=== PATIENT | male | born 1990 | race Caucasian/White ===

== ENCOUNTER → 2016-11-07 | Outpatient (CLI) | payer OTHER ==
[~2016-11-07] MED LIST: AMOXTAB PO; LORT1ELX8 PO; MOME50SP; PROAAER INH
--- NOTE | 2016-11-07 14:58 | REP ---
RIGHT ELBOW SERIES: Four views. HISTORY: Right elbow pain. FINDINGS: Four views right elbow demonstrate adelso olecranon soft tissue swelling . No evidence of fracture subluxation or joint effusion. IMPRESSION: Soft-tissue swelling about the olecranon. This may reflect olecranon bursitis. No acute bony abnormality. Signed by Kyle Olivares MD 11/07/2016 03:27 P
== END ==
LOC: M LRY 14:01
PROVIDERS: ATTEND Nurse Practitioner Family
DX: M25.521 Pain in right elbow (principal)

== ENCOUNTER → 2017-03-13 | Outpatient (CLI) | payer OTHER ==
--- NOTE | 2017-03-13 10:04 | REP ---
MAXILLOFACIAL CT WITHOUT CONTRAST: HISTORY: Chronic sinusitis. Mucosal thickening is present in the sinuses. There is almost complete opacification of the ethmoid and left maxillary sinuses. Moderate mucosal thickening is present in the right sphenoid sinus. Mild mucosal thickening is present in the frontal and right maxillary sinuses. Mucosal thickening involves the osteomeatal units. The uncinate processes are incompletely seen. This is due to previous surgery or secondary to chronic sinusitis. The middle and inferior nasal turbinates are partially paradoxical. There is zaina bullosa of the right middle nasal turbinate. There is minimal deviation of the nasal septum to the left. The cribriform plate, medial perla of the orbits and optic canals are intact. The carotid canals form a segment of the posterolateral perla of the sphenoid sinus. IMPRESSION: Sinus mucosal thickening as described above. Signed by Sergio Orozco MD 03/13/2017 10:09 A
== END ==
LOC: M RAD 09:02
PROVIDERS: ATTEND Otolaryngology
DX: J32.4 Chronic pansinusitis (principal)

== ENCOUNTER → 2017-04-15 | Outpatient (CLI) | payer OTHER | LOC: M RAD 07:30 | DX: J32.4 Chronic pansinusitis (principal) ==

== ENCOUNTER 2017-05-10 07:07 | Day surgery (SDC) | payer OTHER ==
[2017-05-10] MEDS ORDERED: dexameTHASONE 4 MG/ML 1ML VIAL (J1100) As Ordered (08:11)
[2017-05-10] MEDS ORDERED: LIDOCAINE 2% INJ 100 MG/5 ML SDV (FOR ANES.) As Ordered (08:11)
[2017-05-10] MEDS ORDERED: ROCURONIUM BROMIDE 50 MG/5 ML VIAL As Ordered ×2 (08:11→10:41)
[2017-05-10] MEDS ORDERED: MIDAZOLAM INJ 2 MG/2 ML VIAL (J2250) As Ordered (08:11)
[2017-05-10] MEDS ORDERED: fentaNYL 250 MCG/5 ML INJECTION (J3010) As Ordered (08:11)
[2017-05-10] MEDS ORDERED: PROPOFOL 200 MG/20 ML VIAL As Ordered (08:11)
[2017-05-10] MEDS: LR 1,000 ML IV (08:15)
[2017-05-10] MEDS: LIDOCAINE W/EPINEPHRINE 1% 20ML VIAL As Ordered (10:57)
[2017-05-10] MEDS ORDERED: HYDROmorphone HCL 2 MG/ML 1ML VIAL (J1170) As Ordered (11:12)
[2017-05-10] MEDS ORDERED: NEOSTIGMINE 10 MG/10 ML VIAL (J2710) As Ordered (11:12)
[2017-05-10] MEDS ORDERED: GLYCOPYRROLATE INJ 0.2 MG/ML 2 ML VIAL As Ordered (11:12)
[2017-05-10] MEDS: OXYMETAZOLINE NASAL SPRAY (AFRIN) As Ordered ×2 (12:35→12:37)
[2017-05-10] MEDS: METHYLENE BLUE 0.5% (5MG/ML) 10 ML AMP (PROVAYBLUE)(Q9968 PER 1MG) As Ordered (12:36)
[2017-05-10] MEDS: SODIUM CHLORIDE 0.9% NASAL GEL 15MG (AYR) As Ordered (12:36)
[2017-05-10] MEDS ORDERED: fentaNYL 100 MCG/2 ML INJECTION (J3010) As Ordered (14:05)
[2017-05-10] MEDS: fentaNYL 100 MCG/2 ML INJECTION (J3010) IV ×3 (14:07→14:29)
[2017-05-10] MEDS ORDERED: LR 1,000 ML IV ×2 (14:15)
[2017-05-10] MEDS ORDERED: ACETAMINOPH W/CODEINE #3 TAB UD PO ×2 (14:15)
[2017-05-10] MEDS: PERCOCET 5MG/325MG TAB PO (15:06)
== END 2017-05-10 16:20 | disposition home or self-care (01) ==
LOC: M SDC 07:07
DX: J32.4 Chronic pansinusitis (principal); J30.9 Allergic rhinitis, unspecified; J34.2 Deviated nasal septum; R09.81 Nasal congestion; F90.9 Attention-deficit hyperactivity disorder, unspecified type; J45.909 Unspecified asthma, uncomplicated; Z79.51 Long term (current) use of inhaled steroids
CPT/HCPCS: 31255

== ENCOUNTER → 2017-08-06 | Outpatient (REF) | payer OTHER | LOC: M LAB REF 16:39 | DX: J32.4 Chronic pansinusitis (principal) ==

== ENCOUNTER → 2018-01-17 | Outpatient (CLI) | payer OTHER ==
[~2018-01-17] MED LIST changes: -AMOXTAB PO; +GASTROGRAFIN SOLUTION 30ML (Q9963) As Ordered; +ISOVUE-370 76% 100ML VIAL (Q9967) As Ordered; -LORT1ELX8 PO; -MOME50SP; -PROAAER INH
== END ==
LOC: M RAD 13:40
DX: R10.11 Right upper quadrant pain (principal); R19.7 Diarrhea, unspecified; K63.89 Other specified diseases of intestine
CPT/HCPCS: Q9963

== ENCOUNTER 2018-01-21 11:19 | Day surgery (SDC) | payer OTHER ==
[~2018-01-21 11:19] MED LIST changes: -GASTROGRAFIN SOLUTION 30ML (Q9963) As Ordered; -ISOVUE-370 76% 100ML VIAL (Q9967) As Ordered; +LIDOCAINE 1% MDV 20ML VIAL SQ
[2018-01-21] MEDS: LR 1,000 ML IV ×2 (12:10)
[2018-01-21] MEDS: ceFAZolin SOD 1 GM in D5W MINI-BAG PLUS 50 ML IV (12:50)
[2018-01-21] MEDS ORDERED: dexameTHASONE 4 MG/ML 1ML VIAL (J1100) As Ordered ×2 (12:52)
[2018-01-21] MEDS ORDERED: LIDOCAINE 2% INJ 100 MG/5 ML SDV (FOR ANES.) As Ordered ×2 (12:52)
[2018-01-21] MEDS ORDERED: fentaNYL 250 MCG/5 ML INJECTION (J3010) As Ordered ×2 (12:52)
[2018-01-21] MEDS ORDERED: MIDAZOLAM INJ 2 MG/2 ML VIAL (J2250) As Ordered ×2 (12:52)
[2018-01-21] MEDS ORDERED: PROPOFOL 200 MG/20 ML VIAL As Ordered ×2 (12:52)
[2018-01-21] MEDS ORDERED: KETOROLAC 60 MG/2 ML VIAL (J1885) As Ordered ×2 (13:09)
[2018-01-21] MEDS ORDERED: ONDANSETRON 4MG/2ML VIAL (J2405) As Ordered ×2 (13:09)
[2018-01-21] MEDS ORDERED: ROCURONIUM BROMIDE 50 MG/5 ML VIAL As Ordered ×2 (13:16)
[2018-01-21] MEDS: BUPIVACAINE/EPIN 0.25% 30 ML VIAL As Ordered ×2 (13:18)
[2018-01-21] MEDS: BUPIVACAINE LIPOSOME/PF 1.3% 20 ML VIAL (13.3MG/ML)(EXPAREL) As Ordered (13:18)
[2018-01-21] MEDS: BUPIVACAINE LIPOSOME/PF 1.3% 20ML VIAL (13.3MG/ML)(EXPAREL)(C9290 PER1MG) As Ordered (13:18)
[2018-01-21] MEDS ORDERED: LR 1,000 ML IV ×4 (13:45→14:00)
[2018-01-21] MEDS ORDERED: NORCO, ANEXSIA 5/325MG TABLET (HYDROcodone/ACETAMINOPHEN) PO ×2 (13:45)
[2018-01-21] MEDS ORDERED: ONDANSETRON 4MG/2ML VIAL (J2405) IV ×2 (13:45)
[2018-01-21] MEDS ORDERED: PERCOCET 5MG/325MG TAB As Ordered ×2 (13:52)
[2018-01-21] MEDS: PERCOCET 5MG/325MG TAB PO ×4 (13:55→14:26)
[2018-01-21] MEDS: ONDANSETRON 4MG/2ML VIAL (J2405) IV ×2 (13:56)
[2018-01-21] MEDS ORDERED: METOCLOPRAMIDE INJ 10MG/2ML VIAL (J2765) IV ×2 (14:00)
[2018-01-21] MEDS ORDERED: MEPERIDINE INJ 25 MG/ML VIAL (J2175) IV ×2 (14:00)
[2018-01-21] MEDS ORDERED: fentaNYL 100 MCG/2 ML INJECTION (J3010) IV ×2 (14:00)
== END 2018-01-21 15:35 | disposition home or self-care (01) ==
LOC: M SDC 11:19
DX: K42.9 Umbilical hernia without obstruction or gangrene (principal); F90.9 Attention-deficit hyperactivity disorder, unspecified type; Z79.899 Other long term (current) drug therapy; Z79.52 Long term (current) use of systemic steroids; J45.909 Unspecified asthma, uncomplicated
CPT/HCPCS: 49585